=== PATIENT | male | born 1960 | race Caucasian/White ===

== ENCOUNTER → 2018-01-19 | Day surgery (SDC) | payer OTHER ==
[~2018-01-19] VITALS: Ht 182.9 cm; Wt 88.5 kg
[~2018-01-19] MED LIST: BACTRIM DS TAB1 EACH PO; VITAMIN D31000 UNI1 PO
--- NOTE | 2018-01-19 12:16 | Operative Report ---
Operative/Inv Procedure Report Surgery Date: 01/19/18 Name of Procedure: Cystoscopy and internal urethrotomy Pre-Operative Diagnosis: Recurrent urethral stricture Post-Operative Diagnosis: Same Estimated Blood Loss: scant Surgeon/Mottler Operator: Elly FLOREZ,Anthony Fields Anesthesia: laryngeal mask airway Drains: 20 [place] squaxin tipped catheter Specimens: None Microbiology: Urine culture Complications: None Condition: Stable Operative Indication: Recurrent urethral stricture which could not be dilated in the office Operative/Procedure Note Note: The patient was taken to the cystoscopy room and identified. He is placed in supine position on the cystoscopy table. A timeout was executed appropriately with the patient awake. Gen. anesthesia was induced via LMA. He was then placed in dorsal lithotomy position where it bimanual rectal exam revealed a mildly enlarged, nonnodular prostate. He was then prepped and draped in usual fashion for cystoscopy. Surgical pause was executed appropriately. The 22 [place] cystoscope sheath was placed into the urethra under direct vision. Distally the urethra was normal. However in the area of the bulbar urethra there was a dense urethral stricture. A guidewire was placed through the stricture under direct vision with mild difficulty. The cystoscope was removed leaving the guidewire in place. Using a direct visual urethrotome a urethrotomy was performed at the 12 o'clock position. The stricture was opened up enough such that the urethrotome could be advanced through the urethra into the bladder. Stricture started at the external sphincter and extended distally for about 2 cm. The prostate appeared nonobstructing. The bladder was minimally trabeculated. Both ureteral orifices were normal. There is no evidence of bladder tumor or stone. At this point urethrotome was removed leaving the guidewire in place. A 20 [place] squaxin tip catheter was placed over the wire. Patient tolerated the procedure well and has completed was taken to recovery in stable condition. Findings: Dense 2 cm urethral stricture starting at the external sphincter and extending distally Discharge Disposition: PACU
== END ==
LOC: STS 04:01
DX: N35.9 Urethral stricture, unspecified (principal)
CPT/HCPCS: 87086; J0690; J2250